=== PATIENT | female | born 1985 | race Two or more races ===

== ENCOUNTER 2020-12-07 12:05 | Emergency (ER) | payer SELFPAY ==
[~2020-12-07] VITALS: Ht 170.2 cm; Wt 71.2 kg
[2020-12-07] MEDS ORDERED: IV NS 0.9% 1,000 ML BAG IV ONE (12:30)
[2020-12-07] MEDS ORDERED: ONDANSETRON HCL/PF 4 MG/2 ML VIAL IVP ONE (12:30)
[2020-12-07] MEDS ORDERED: ONDANSETRON HCL/PF 4 MG/2 ML VIAL ONE (12:32)
--- NOTE | 2020-12-07 12:45 | NUR ---
C/O NAUSEA AND VOMITING SINCE YESTERDAY. PT AAOX3, VSS. RR EVEN & UNLABORED. DENIES CP, SOB AT THIS TIME. PT SEEN & EVAL'D BY DR. SMITH. MEDICATED ORDERED, PT CHAVA WELL. WILL CONT TO MONITOR.
[2020-12-07 12:55] LABS: BASOPHILS % (AUTO) 0.3 % (0.0-2.0); HEMATOCRIT 41 % (33-45); HEMOGLOBIN 13.8 g/dL (11.5-14.8); LYMPHOCYTES # (AUTO) 1.3 /CMM (0.8-4.8); LYMPHOCYTES % (AUTO) 13.9 % (20.0-44.0); MEAN CORPUSCULAR HGB CONC 33 g/dl (31.0-36.0); MEAN CORPUSCULAR VOLUME 98 fL (82-100); MONOCYTES # (AUTO) 0.3 /CMM (0.1-1.30); MONOCYTES % (AUTO) 3.3 % (2.0-12.0); NEUTROPHILS # (AUTO) 7.8 /CMM (1.8-8.9); NEUTROPHILS % (AUTO) 82.5 % (43.0-81.0); PLATELET COUNT (AUTO) 250 /CMM (150-450); RED BLOOD CELL COUNT(AUTO) 4.22 MIL/uL (4.0-5.2); WHITE BLOOD COUNT (AUTO) 9.4 K/uL (4.3-11.0)
[2020-12-07 13:05] LABS: CALCIUM, SERUM 9.1 mg/dL (8.5-10.1); CREATININE 0.8 mg/dL (0.6-1.3); POTASSIUM 3.5 mmol/L (3.5-5.1)
[2020-12-07 13:10] LABS: ALBUMIN 4.2 g/dL (3.4-5.0); BILIRUBIN,DIRECT 0.2 mg/dL (0.0-0.2); BILIRUBIN,TOTAL 0.5 mg/dL (0.2-1.0)
[2020-12-07] MEDS ORDERED: ONDA4TAB11 PO (13:58)
[2020-12-07 14:26] VITALS: BP 118/70
--- NOTE | 2020-12-07 14:26 | NUR ---
Patient discharged to home in stable condition. Written and verbal after care instructions given. Patient verbalizes understanding of instruction. IV removed. Catheter intact and site benign. Pressure and 4x4 applied to site. No bleeding noted.
== END 2020-12-07 14:26 | disposition home or self-care (01) ==
LOC: ER 12:43
DX: R11.2 Nausea with vomiting, unspecified (principal); F41.9 Anxiety disorder, unspecified; F31.9 Bipolar disorder, unspecified; Z90.89 Acquired absence of other organs; Z98.890 Other specified postprocedural states; Z91.030 Bee allergy status
CPT/HCPCS: 36415; 80048; 80076; 83690; 84703; 85025; 96361; 96374; 99283; J2405; J7030

== ENCOUNTER 2021-01-02 13:48 | Emergency (ER) | payer SELFPAY ==
[~2021-01-02] VITALS: Ht 170.2 cm; Wt 70.3 kg
[~2021-01-02 13:48] MED LIST: ONDA4TAB11 PO
[2021-01-02 14:05] VITALS: BP 114/78
[2021-01-02] MEDS ORDERED: TOPI50TA PO (14:21)
--- NOTE | 2021-01-02 14:32 | NUR ---
patient condition stable d/c home with instructions after care reviewed understood left er via self ambulatory with steady gait. no pain no distress.
== END 2021-01-02 14:33 | disposition home or self-care (01) ==
LOC: ER 13:48
DX: F31.9 Bipolar disorder, unspecified (principal); F41.9 Anxiety disorder, unspecified; Z76.0 Encounter for issue of repeat prescription; Z90.89 Acquired absence of other organs; Z91.030 Bee allergy status; Z79.899 Other long term (current) drug therapy

== ENCOUNTER 2021-01-04 16:13 | Emergency (ER) | payer MEDICAID ==
[~2021-01-04] VITALS: Ht 170.2 cm; Wt 74.8 kg
[~2021-01-04 16:13] MED LIST changes: +TOPI50TA PO
--- NOTE | 2021-01-04 16:50 | NUR ---
THE PATIENT BIBS FOR WANTS ASSISTANCE WITH FINDING A PLACE TO STAY,"APARTMENT, NOT TOO EXPENSIVE. DENIES SI/HI. DENIES PAIN. IN ROOM AIR AND DENIES SOB. RESPIRASTION REGULAR AND UNLABORED. WILL CONTINUE TO MONITOR THE PATIENT.
[2021-01-04 17:03] VITALS: BP 121/76
--- NOTE | 2021-01-04 17:03 | NUR ---
Patient discharged to home in stable condition. Written and verbal after care instructions given. Patient verbalizes understanding of instruction.
== END 2021-01-04 17:04 | disposition home or self-care (01) ==
LOC: ER 16:13
DX: Z59.0 Homelessness (principal); F41.9 Anxiety disorder, unspecified; F31.9 Bipolar disorder, unspecified; Z90.89 Acquired absence of other organs; Z91.030 Bee allergy status; Z60.2 Problems related to living alone; Z79.899 Other long term (current) drug therapy

== ENCOUNTER 2021-06-07 17:53 | Emergency (ER) | payer MEDICAID ==
[~2021-06-07] VITALS: Ht 175.3 cm; Wt 74.8 kg
[2021-06-07 19:02] VITALS: BP 103/59
[2021-06-07] MEDS ORDERED: TOPI50TA PO (19:29)
== END 2021-06-07 20:55 | disposition home or self-care (01) ==
LOC: ER 17:56
DX: R51.9 Headache, unspecified (principal); R11.0 Nausea; H53.149 Visual discomfort, unspecified; Z76.0 Encounter for issue of repeat prescription